=== PATIENT | male | born 1970 | race Two or more races ===

== ENCOUNTER → 2024-05-28 | Outpatient (CLI) | payer MEDICAID, SELFPAY ==
--- NOTE | 2024-05-28 09:59 | XR_ITS ---
Examination: Hand, left 3 views Technique: Hand AP, oblique, lateral 3 views Date and time of exam: May 28, 2024 1001 hours INDICATIONS: Numbness in the first digit post laceration to the first digit 5 years ago FINDINGS: Mild osteopenia. No fracture. No cortical bone destruction. No opaque foreign body IMPRESSION: No fracture. No cortical bone destruction. No opaque foreign body No erosive arthritis
--- NOTE | 2024-05-28 09:59 | XR_ITS ---
Examination: Wrist, left 3 views Technique: Wrist AP, oblique, lateral 3 views Date and time of exam: May 28, 2024 1001 hours INDICATIONS: Laceration to the first digit 5 years ago with numbness and pain. FINDINGS: Mild osteopenia. No fracture or dislocation No foreign body IMPRESSION: No fracture or dislocation
== END | disposition home or self-care (01) ==
LOC: CDIM 09:34
DX: M25.532 Pain in left wrist (principal); M79.642 Pain in left hand
CPT/HCPCS: 73110; 73130